=== PATIENT | female | born 1960 | race Caucasian/White ===

== ENCOUNTER 2017-09-26 15:00 | Emergency (ER) | payer MEDICARE, MEDICAID ==
--- NOTE | 2017-09-26 15:56 | UC ---
Throat Pain/Nasal Scotty HPI - HPI Summary HPI Summary: 57 y/o female presents to the urgent care c/o sore throat, fever, chills, B/L ear pain. body aches and HERNADEZ for the past 5 days. Pt states nasal congestion with green nasal discharge. She is also having a green phlegm at times. Pain with swallowing is 7/10. She has taking Exedrin PO to alleviate symptoms. Pt denies SOB, chest pain, abdominal pain, N/V/D. - History of Current Complaint Chief Complaint: UCRespiratory Stated Complaint: ST Time Seen by Provider: 09/26/17 15:54 Hx Obtained From: Patient Hx Last Menstrual Period: menopausal ?: No Onset/Duration: Gradual Onset, Lasting Days - 5 days, Still Present Pain Intensity: 7 Pain Scale Used: 0-10 Numeric Cough: Sputum Appears - green Associated Signs & Symptoms: Positive: Dysphagia, Sinus Discomfort, Nasal Discharge - green. Negative: Wheezing, Fever - Epiglottits Risk Factors Epiglottis Risk Factors: Negative - Allergies/Home Medications Allergies/Adverse Reactions: Allergies Allergy/AdvReac Type Severity Reaction Status Date / Time Codeine Allergy GI Upset Verified 09/26/17 15:56 Leflunomide [From Arava] Allergy Diarrhea Verified 09/26/17 15:56 Methotrexate Allergy Rash Verified 09/26/17 15:56 Penicillins Allergy Hives Verified 09/26/17 15:56 Home Medications: Home Medications Cyclobenzaprine HCl [Flexeril 5 mg (NF)] 0.25 tab BID 09/26/17 [History Confirmed 09/26/17] Gabapentin CAP(*) [Neurontin 100 mg CAP(*)] 100 mg Q8HR PRN 09/26/17 [History Confirmed 09/26/17] PMH/Surg Hx/FS Hx/Imm Hx Previously Healthy: Yes Endocrine History: Hypothyroidism, Dyslipidemia Cardiovascular History: Hypertension - Surgical History Surgical History: Yes Surgery Procedure, Year, and Place: THYROID,TONSILS,TUBAL,SINUS,KNEE SCOPE,GB - Family History Known Family History: Positive: Cardiac Disease, Hypertension, Diabetes - Social History Occupation: Employed Full-time Lives: With Family Alcohol Use: Rare Substance Use Type: None, Prescribed Smoking Status (MU): Never Smoked Tobacco When Did the Patient Quit Smoking/Using Tobacco: quit over 30 years ago - Immunization History Most Recent Influenza Vaccination: Fall 2014 Review of Systems Constitutional: Negative Skin: Negative Eyes: Negative ENT: Sore Throat, Ear Ache - B/L ear pressure, Nasal Discharge - green, Sinus Congestion, Sinus Pain/Tenderness Respiratory: Cough - productive at times with green phlegm Cardiovascular: Negative Gastrointestinal: Negative Genitourinary: Negative Motor: Negative Neurovascular: Negative Musculoskeletal: Negative Neurological: Negative Psychological: Negative Is Patient Immunocompromised?: No All Other Systems Reviewed And Are Negative: Yes Physical Exam Triage Information Reviewed: Yes - Additional Comments Vitals: reviewed General: Well developed, well-nourished female patient with NAD. Head and face: Normocephalic and atraumatic, Positive tenderness over the frontal and maxillary sinuses.. Eyes: PERRLA, EOMI x 2. Normal conjunctiva. No eye discharge. ENT: B/L external ear canal impacted with cerumen unable to visualize TM's. Nose: with yellowish discharge and erythematous mucosa. Pharynx with erythema, no exudate. Neck: Supple, no JVD, no carotid bruits and no lymphadenopathy. Lungs: clear, no rales, no rhonchi, no wheezes. CVS: RRR, S1 and S2 present no murmurs or gallops appreciated. Abdomen: soft nontender with positive bowel sounds. Extremities: no edema noted. Neuro: WNL. Skin: warm and dry Throat Pain/Nasal Course/Dx - Course Course Of Treatment: 57 y/o female presents to the urgent care c/o sore throat, fever, chills, B/L ear pain. body aches and HERNADEZ for the past 5 days. Pt states nasal congestion with green nasal discharge. She is also having a green phlegm at times. Pain with swallowing is 7/10. She has taking Exedrin PO to alleviate symptoms. Pt denies SOB, chest pain, abdominal pain, N/V/D.Hx obtained. Pt with moderate bacterial sinusitis and pharyngitis on examination. Rapid strep ordered , result: negative. Pt PNC allergic . Pt Rx Doxycycline PO and flonase nasal spray. Debrox to clear B/L external ears, Pt declined ear irrigation. Discharge instructions explained to Pt. Advised to Return to the clinic or PCP if symptoms do not improve.Pt understood and agreed with plan of care. - Differential Dx/Diagnosis Differential Diagnosis/HQI/PQRI: Influenza, Laryngitis, Otitis Media, Pharyngitis, Sinusitis, Tonsillitis, URI, Other - cerumen impaction Provider Diagnoses: 1- Acute sinusitis. 2- B/L cerumen impaction. Discharge - Discharge Plan Condition: Stable Disposition: HOME Prescriptions: Carbamide Peroxide 6.5% OTIC* [DEBROX 6.5% Otic*] 5 drop BOTH EARS BID #1 bottle DOXYcycline CAP(*) [DOXYcycline 100MG CAP(*)] 100 mg PO BID #20 cap Fluticasone NASAL SPRAY 50MCG* [Flonase NASAL SPRAY 50MCG*] 2 spray BOTH NARES DAILY #1 btl Patient Education Materials: Sinusitis (ED), Cerumen Impaction (ED) Referrals: Keila Martinez [Primary Care Provider] - 1 Week Additional Instructions: 1- Please increase fluid intake and rest. take full course of antibiotic to avoid resistance 2-Use Flonase as directed to help drain fluid. Also buy saline drops to clear sinuses 3-Continue taking Claritin PO to alleviates sinus congestion 4-Return to the clinic or PCP if symptoms do not improve for further management and treatment
[2017-09-26 16:04] VITALS: BP 121/76
== END 2017-09-26 16:43 | disposition home or self-care (01) ==
LOC: UCCORT 15:00
DX: J01.90 Acute sinusitis, unspecified (principal); H61.23 Impacted cerumen, bilateral; E03.9 Hypothyroidism, unspecified; E78.5 Hyperlipidemia, unspecified; I10 Essential (primary) hypertension; Z88.5 Allergy status to narcotic agent; Z88.0 Allergy status to penicillin; Z88.8 Allergy status to other drugs, medicaments and biological substances; Z87.891 Personal history of nicotine dependence
CPT/HCPCS: 87651; 99212; G0463

== ENCOUNTER 2019-04-21 10:41 | Day surgery (SDC) | payer MEDICARE, MEDICAID ==
[~2019-04-21 10:41] MED LIST: Buffered Lidocaine 1% SYRIN* 1 ML/SYRINGE INTRADERM ONE; Lactated Ringers 1000 ML Bag* 1,000 ML IV SCH
[2019-04-21] MEDS ORDERED: Clindamycin 900 MG IVPREMIX(* 900 MG/50 ML SDV IV ONE (10:50)
[2019-04-21] MEDS ORDERED: Bupivacaine 0.25% SDV PF* 10 ML VIAL INJ ONE (11:14)
[2019-04-21] MEDS ORDERED: Lidocaine 1% MPF* 2 ML VIAL ONE (11:31)
[2019-04-21] MEDS ORDERED: Betamethasone INJ* 6 MG/ML 5 ML VIAL (30 MG) ONE (11:32)
[2019-04-21] MEDS ORDERED: fentaNYL* 50 MCG/ML 2 ML VIAL (100 MCG VIAL) ONE (12:01)
[2019-04-21] MEDS ORDERED: Midazolam* 1 MG/ML 5 ML VIAL (5 MG) ONE (12:01)
[2019-04-21] MEDS ORDERED: Propofol* 10 MG/ML 20 ML BTL ONE ×2 (13:12→13:25)
--- NOTE | 2019-04-21 14:35 | OP ---
DATE OF OPERATION: 04/21/19 - [facility] DATE OF : 56 SURGEON: Titi Mcdonnell MD MOSAIC LAYER: MARY JANE Rabago ANESTHESIOLOGIST: Dr. Romeo. ANESTHESIA: Local MAC. PRE-OP DIAGNOSES: 1. Left middle and ring trigger fingers in a patient with severe rheumatoid arthritis. 2. Left thumb carpometacarpal degenerative joint disease. POST-OP DIAGNOSES: 1. Left middle and ring trigger fingers in a patient with severe rheumatoid arthritis. 2. Left thumb carpometacarpal degenerative joint disease. OPERATIVE PROCEDURE: 1. Left middle finger flexor tenosynovectomy on the finger and palm. 2. Left ring finger flexor tenosynovectomy on the finger and palm. 3. Single slip of the left middle finger FDS tendon excision. 4. Single slip of the left ring finger FDS tendon slip excision. 5. Left thumb carpometacarpal joint steroid injection. INDICATIONS: Nicole has severe rheumatoid arthritis. We talked about our treatment options. She cannot make a fist anymore because her middle and ring fingers are so stiff and are chronic trigger fingers. She wanted to proceed with surgery. I told her we do the surgery a little differently due to her severe rheumatoid arthritis than I would otherwise a typical trigger finger. ESTIMATED BLOOD LOSS: 10 mL. COMPLICATIONS: None. FINDINGS: See above and below. DESCRIPTION OF PROCEDURE: Nicole was seen in the preoperative holding area. The correct site, side, and procedure were identified. We came back to the operating room where the arm was prepped and draped in the usual fashion and a time-out was performed. The arm was exsanguinated with the Esmarch and a forearm base tourniquet was inflated to 200 mmHg. I went ahead and made V-shaped incisions over the PIP joints on both fingers and then over the distal flexion crease proximally over both fingers. Dissections were carried down. Full-thickness flaps were raised off the tendon sheath and all the flaps were sewn back with 4-0 nylon suture. At this point, I had excellent visualization of the A3 and A1 pulleys. I started on the middle finger. I released the A3 bartolo longitudinally on its ulnar aspect. The ulnar slip of the FDS tendon was released with a Hooker blade. Camper's chiasm was released with the tenotomy scissors. In similar fashion, I did the same thing on the ring finger releasing the ulnar slip of the FDS tendon at its insertion. I then came proximally on the ring finger and I delivered the FDS tendon proximal to the A1 bartolo. The tendon split was identified as I just started. I released the remainder of the adhesions between the 2 slips of the FDS tendon and then the ulnar slip was pulled proximally up out of the tendon sheath and beveled off proximally completely excising it. I did the same exact thing to the middle finger excising the ulnar slip of the FDS tendon in the same exact manner. Please note that prior to doing tendon slip excision, I had performed a full flexor tenosynovectomy first of the ring finger and then the middle finger, stripping both the FDS and FDP of all the rheumatoid tenosynovitis. There was a lot of it. All of the tenosynovitis from both fingers was handed off as a single specimen. The tenosynovectomy was taken all the way up into the proximal palm past the origin of the lumbrical muscles. After the tenosynovectomy and the tendon slips were performed and both tendon slips were excised, everything was looking good, at this point we were half an hour on the tourniquet, she was trying to get along comfortable and so we dropped the tourniquet. The skin was closed after the tourniquet was down. There was not that much bleeding. All the wounds were irrigated out prior to closure. Skin closure was done with 4-0 nylon suture. Soft dressings were applied and she was taken to the recovery room in stable condition. [id number]/[facility] #: [id number] THOR
[2019-04-21 15:38] VITALS: BP 141/75
== END 2019-04-21 15:19 | disposition home or self-care (01) ==
LOC: OREAST 10:41
PROVIDERS: ATTEND Orthopaedic Surgery Hand Surgery
DX: M65.342 Trigger finger, left ring finger (principal); M65.332 Trigger finger, left middle finger; M06.832 Other specified rheumatoid arthritis, left wrist; I10 Essential (primary) hypertension; E78.5 Hyperlipidemia, unspecified; J45.909 Unspecified asthma, uncomplicated; K21.9 Gastro-esophageal reflux disease without esophagitis; E03.9 Hypothyroidism, unspecified; D64.9 Anemia, unspecified; F32.9 Major depressive disorder, single episode, unspecified; Z87.891 Personal history of nicotine dependence; Z88.0 Allergy status to penicillin; Z88.2 Allergy status to sulfonamides; Z88.5 Allergy status to narcotic agent; Z88.8 Allergy status to other drugs, medicaments and biological substances
CPT/HCPCS: 88304; J0702; J2250; J2704; J3010; J3490

== ENCOUNTER 2019-07-12 09:19 | Emergency (ER) | payer MEDICARE, MEDICAID ==
--- OUTSIDE RECORDS SUMMARY | 2019-07-12 10:20 | XMS REPORT | Continuity of Care Document ---
:1960 External Reference #:[id number] Author Name Masood Russ DO, MPH Address [address] [place] [address], [address] [place] [address] Care Team Providers Name Role Phone Martín Fox N.P. - Internal Care Team Information Emergency Service Restorer [phone] Medicine Problems Active Problems Provider Date Musculoskeletal disorder of the neck Masood Russ DO, MPH Onset: 02/25/2011 Social History Type Date Description Comments Sex Unknown Tobacco Use Start: Unknown Never Smoked Cigarettes ETOH Use Occasionally consumes alcohol Tobacco Use Start: Unknown End: Unknown Patient is a former smoker Smoking Status Reviewed: 06/28/19 Patient is a former smoker Allergies, Adverse Reactions, Alerts Active Allergies Reaction Severity Comments Date PCN 01/27/2008 Codeine 01/27/2008 Arava 01/27/2008 Methotrexate 01/27/2008 Medications Active Medications SIG Qnty Indications Ordering Date Provider Gabapentin take 1 capsules 120caps Masood Russ, 07/01/2017 100mg Capsules by mouth every 6 DO, MPH hours ud. chronic pain Cyclobenzaprine HCL si by mouth 60tabs Masood Russ, 09/01/2016 10mg every 8 to 12 DO, MPH Tablets hours as directed chronic pain patient. Oxycodone HCL sipo every 12 60tabs Masood Russ, 08/07/2014 5mg Tablets hours as DO, MPH directed chronic pain patient Cymbalta si by mouth 30caps Masood Russ, 09/26/[address] Part every day as DO, MPH directed chronic pain patient Synthroid 1 po qd ud Unknown 88mcg Tablets Fluticasone Propionate prn Unknown 50mcg/Act Suspension Metoprolol Tartrate Unknown 75mg Tablets Verapamil HCL Unknown 40mg Tablets Losartan Unknown Potassium/Hydrochloroth iazide 100-25mg Tablets Calcium 600+D 1 by mouth three Unknown Tablets times a day Loratadine si by mouth Unknown 10mg Tablets every morning Leflunomide 1 by mouth daily Unknown 20mg Tablets Immunizations Description No Information Available Vital Signs Date Vital Result Comment 06/28/2019 9:13am BP Systolic 122 mmHg BP Diastolic 74 mmHg Heart Rate 76 /min Respiratory Rate 20 /min Height 64 inches 5'4" Weight 182.00 lb Pain Level 3 Pain at this time. Pain Level With Medicine 3 on average with meds Pain Level Without Medicine 9 without meds BMI (Body Mass Index) 31.2 kg/m2 05/26/2019 9:53am BP Systolic 128 mmHg BP Diastolic 78 mmHg Heart Rate 74 /min Respiratory Rate 20 /min Height 64 inches 5'4" Weight 183.00 lb Pain Level 4 Pain at this time. Pain Level With Medicine 3 on average with meds Pain Level Without Medicine 8 without meds BMI (Body Mass Index) 31.4 kg/m2 Results Description No Information Available Procedures Description No Information Available Medical Devices Description No Information Available Encounters Type Date Location Provider Dx Diagnosis Office Visit 05/26/2019 Main Office as Of Masood Russ DO G89.21 Chronic pain due 10:00a 12/03/13 MPH to trauma M54.2 Cervicalgia Z79.891 senior living (current) use of opiate analgesic Z79.891 senior living (current) use of opiate analgesic Office Visit 04/27/2019 9:30a Main Office as Masood Russ G89.21 Chronic pain due Of 12/03/13 DO, MPH to trauma M54.2 Cervicalgia Z79.891 web specialist (current) use of opiate analgesic Z79.891 senior living (current) use of opiate analgesic Office Visit 03/30/2019 9:30a Main Office as Masood Russ G89.21 Chronic pain due Of 12/03/13 DO, MPH to trauma M54.2 Cervicalgia Z79.891 senior living (current) use of opiate analgesic Z79.891 web specialist (current) use of opiate analgesic Office Visit 03/01/2019 9:15a Main Office as RussLin goph, G89.21 Chronic pain due Of 12/03/13 DO, MPH to trauma M54.2 Cervicalgia Z79.891 senior living (current) use of opiate analgesic Z79.891 web specialist (current) use of opiate analgesic Office Visit 01/31/2019 9:15a Main Office as RussLin goph, G89.21 Chronic pain due Of 12/03/13 DO MPH to trauma M54.2 Cervicalgia Z79.891 senior living (current) use of opiate analgesic Z79.891 senior living (current) use of opiate analgesic Assessments Date Code Description Provider 06/28/2019 G89.21 Chronic pain due to trauma Russ, Masood, DO, MPH 06/28/2019 M54.2 Cervicalgia Russ, Masood, DO, MPH 06/28/2019 Z79.891 web specialist (current) use of opiate analgesic Russ, Masood , DO, MPH 06/28/2019 Z79.891 web specialist (current) use of opiate analgesic Russ, Masood , DO, MPH 05/26/2019 G89.21 Chronic pain due to trauma Russ, Masood, DO, MPH 05/26/2019 M54.2 Cervicalgia Russ, Masood, DO, MPH 05/26/2019 Z79.891 senior living (current) use of opiate analgesic Russ, Masood , DO, MPH 05/26/2019 Z79.891 senior living (current) use of opiate analgesic Russ, Masood , DO, MPH 04/27/2019 G89.21 Chronic pain due to trauma Russ, Masood, DO, MPH 04/27/2019 M54.2 Cervicalgia Russ, Masood, DO, MPH 04/27/2019 Z79.891 web specialist (current) use of opiate analgesic Russ, Masood , DO, MPH 04/27/2019 Z79.891 senior living (current) use of opiate analgesic Russ, Masood , DO, MPH 04/20/2019 G89.21 Chronic pain due to trauma Russ, Masood, DO, MPH 04/20/2019 M54.2 Cervicalgia Russ, Masood, DO, MPH 03/30/2019 G89.21 Chronic pain due to trauma Masood Russ DO, MPH 03/30/2019 M54.2 Cervicalgia Masood Russ DO, MPH 03/30/2019 Z79.891 senior living (current) use of opiate analgesic Masood Russ DO, MPH 03/30/2019 Z79.891 senior living (current) use of opiate analgesic Masood Russ DO, MPH 03/01/2019 G89.21 Chronic pain due to trauma Masood Russ DO, MPH 03/01/2019 M54.2 Cervicalgia Masood Russ DO, MPH 03/01/2019 Z79.891 senior living (current) use of opiate analgesic Masood Russ DO MPH 03/01/2019 Z79.891 web specialist (current) use of opiate analgesic Masood Russ DO, MPH 01/31/2019 G89.21 Chronic pain due to trauma Masood Russ DO MPH 01/31/2019 M54.2 Cervicalgia Masood Russ DO, MPH 01/31/2019 Z79.891 web specialist (current) use of opiate analgesic Masood Russ DO, MPH 01/31/2019 Z79.891 web specialist (current) use of opiate analgesic Masood Russ DO, MPH Plan of Treatment Future Appointment(s):08/02/2019 9:15 am - Masood Russ DO MPH at Main Office as Of 12/03/1407 - Masood Russ DO, MPHG89.21 Chronic pain due to traumaComments:Chronic. Symptoms and complaints discussed and reviewed today. No significant changes in physical findings. Continue current medical pain management.M54.2 CervicalgiaComments:Chronic. Symptoms and complaints discussed and reviewed today. No significant changes in physical findings. Continue current medical pain management.Z79.891 senior living (current) use of opiate analgesicNew Labs:Urine Drug Screen, Ordered: 06/28/19Comments:Urine drug screen sample taken. Rapid Point of Care Cup was reviewed in office with patient. Will send out UDT Rapid to [facility] lab for confirmation testing. Urine Drug Testing (UDT) was done today to monitor opiate use and to monitor possible use of illicit substances. I will discuss the results at the next appointment from the Quantitative lab.The following tests were ordered:6 AM, AMPH, TERRENCE, SARAH, BUP, CARIS, COCM, COT, ETG, FENT, MCSHSG, OPI, OXY, PCP, TAPEN, XTSY, ZOLP. A urine drug test (UDT) using a rapid screen cup was ordered for this patient and collected on site today. Creatinine has been ordered as well for specimen validity, not for kidney function. Urine Drug Testing is a mandatory component of chronic opioid management, as part of the baseline assessment and ongoing re-assessment of opioid therapy. Per [place] [employer], [place] Non-Acute Pain Medical Treatment Guidelines, section F.3.d.i. This test is to be used in conjunction with other clinical information when decisions are to be made to continue, adjust or discontinue treatment. This information includes clinical observation, results of addiction screening, pill counts, and prescription drug monitoring reports. Preliminary UDT screen results are not final and should not be usedto determine patient care or plan of treatment. This sample will be sent out for a more comprehensive quantitative confirmation LCMS study. It is part of the treatment process of prescribing controlled substances and is considered standard of care at this clinic.AllComments:Continue current medical pain management; injection therapy, osteopathic manipulation, PT / modalities, and consults as needed to manage chronic pain.Non - opioid pain management discussed and optionsdiscussed.Side effects discussed; anticipatory guidance given. Patient clearly understand and agree with all medical treatments and suggestions. All medicines prescribed are adequate and appropriate for this patient's complaint of pain, medical history, physical, and personal goals.Goals of Treatment are to provide adequate and appropriate multidisciplinary medical pain management to increase/ maintain patient's quality of life and functionality while maintaining satisfactory side effect profile andminimizing mcfp end-organ damage. Importance of regular nutrition throughout the day discussed.Activity as toleratedContinue with PCP Functional Status Description No Information Available Mental Status Description No Information Available Referrals Description No Information Available
--- OUTSIDE RECORDS SUMMARY | 2019-07-12 10:20 | XMS REPORT | Continuity of Care Document ---
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 Problems Provider Date Tenosynovitis of hand Titi Mcdonnell MD Onset: 06/11/2018 Acquired trigger finger Titi Mcdonnell MD Onset: 10/08/2018 Rheumatoid arthritis Titi Mcdonnell MD Onset: 10/08/2018 Social History Type Date Description Comments Sex Unknown ETOH Use Rarely consumes alcohol Tobacco Use Start: Unknown End: Patient is a former smoker Unknown Smoking Status Reviewed: 06/17/19 Patient is a former smoker Exercise Type/Frequency Exercises sporadically Allergies, Adverse Reactions, Alerts Active Allergies Reaction Severity Comments Date Penicillin 02/18/2011 Methotrexate 02/18/2011 Azathioprine rash 11/25/2011 Sulfa Antibiotics 06/11/2018 Codeine 06/11/2018 Hydroxychloroquine 06/11/2018 Keflex 06/11/2018 Inactive Allergies Arava 02/18/2011 Medications Active Medications SIG Qnty Indications Ordering Date Provider Nexium 1 po qd 90caps Thompson U[place], 02/18/[address] Hunter Synthroid 1 po qd 90tabs Unknown 88mcg Tablets Cymbalta 1 po qd 30caps Unknown 60mg Caps DR Cheema Metoprolol Succinate ER 3 by mouth every Unknown day 25mg Tablets ER 24HR Docqlace 1 cap daily as Unknown 100mg Capsules needed Oxycodone-Acetaminophen 1/4 tablet by 20tabs Unknown mouth every 4-6 5-325mg Tablets hours as needed for pain Hyzaar take 1 tablet by Unknown 100-25mg Tablets mouth in the morning Atorvastatin Calcium 1 by mouth every Unknown 40mg day Tablets Proair HFA 2 puffs by mouth Unknown 108(90Base) every 4 hours as mcg/Act Aerosol needed Nystatin-Triamcinolone apply to Unknown affected area(s) 515271-4.1Unit/GM-% two times a day Cream Gabapentin 3 cap by mouth Unknown 100mg Capsules daily Cyclobenzaprine HCL take one tablet Unknown 5mg by mouth every 8 Tablets hours prn Verapamil HCL ER 1 by mouth at Unknown 120mg Caps bedtime ER 24HR Leflunomide 2 tabs by mouth Unknown 10mg Tablets once daily Eql Fluticasone bid Unknown Propionate 50mcg/Act Suspension History Medications Tramadol HCL 1 tab by mouth 15tabs Titi Mcdonnell MD 04/21/2019 - 50mg every 4-6 hours 05/12/2019 Tablets as needed pain Medications Administered in Office Medication SIG Qnty Indications Ordering Provider Date Celestone 3 mg and 3mg Ermias Dumont MD 10/21/2018 Injection Celestone 3 mg and 3mg Titi Mcdonnell MD 10/08/2018 Injection Celestone 3 mg and 3mg Titi Mcdonnell MD 10/08/2018 Injection Celestone 3 mg and 3mg Titi Mcdonnell MD 06/11/2018 Injection Celestone 3 mg and 3mg Titi Mcdonnell MD 06/11/2018 Injection Immunizations Description No Information Available Vital Signs Date Vital Result Comment 06/17/2019 9:06am Height 62 inches 5'2" Weight 180.00 lb Heart Rate 71 /min BP Systolic Sitting 114 mmHg BP Diastolic Sitting 66 mmHg Respiratory Rate 18 /min Pain Level 1 O2 % BldC Oximetry 93 % BMI (Body Mass Index) 32.9 kg/m2 05/13/2019 10:00am Height 62 inches 5'2" Weight 180.00 lb Heart Rate 67 /min BP Systolic Sitting 106 mmHg BP Diastolic Sitting 74 mmHg Respiratory Rate 16 /min Pain Level 2 O2 % BldC Oximetry 96 % BMI (Body Mass Index) 32.9 kg/m2 Results Test Date Facility Test Result H/L Range Note Laboratory test 04/21/2019 [facility] Surgical SEE RESULT 1 , [address] Pathology BELOW [place], [place] [id number] [phone] 1 [id number] 2 SEE RESULT BELOW Name: NICOLE MCCARTY Carmencita : [address]: Titi Mcdonnell MD Acct: [id number] Unit: [id number] AGE: 58 Location: [facility] Re04/21/19 SEX: F [place] [facility] [place]: [id number] JASMIN: 04/21/19-1309 [facility] DR: Titi Mcdonnell MD REQ: [id number] RECD: 04/21/19 STATUS: SOUT _ ORDERED: LEVEL 3/2 COMMENTS: [id number] FINAL DIAGNOSIS 1. 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 -- No significant active acute or chronic inflammatory process identified. 2. Tendon slips of left middle and ring finger -- Degenerated tendon tissue with myxoid degeneration and skeletal muscle. CLINICAL HISTORY History of rheumatoid arthritis PRE-OPERATIVE DIAGNOSIS Left middle and ring trigger fingers, rheumatoid arthritis left wrist GROSS DESCRIPTION 1. The specimen is received in formalin labeled, Tenosynovitis Left Ring and Middle Fingers, and consists of a 1.9 x 1.8 by up to 0.2 cm aggregate of rowley-white irregular fibrous tissue fragments which is submitted entirely in one cassette. 2. The specimen is received in formalin labeled, Tendons Slips of Left Middle and Ring Fingers, and consists of three rowley-white irregular to elongated focally shaggy rubbery tendinous soft tissue fragments ranging from 2.3 by up to 1.1 x 0.5 cm and 5.7 by up to 0.4 x 0.3 cm. Licensed Sales Producer sections, one cassette. CONTINUED ON NEXT PAGE DEPARTMENT OF PATHOLOGY, [address] [place] [address] Ignacio Alexis M.D. Director [facility] # [id number] RUN DATE: 04/26/19 [facility] LAB LIVE PAGE 2 Patient: NICOLE MCCARTY [id number] (Continued) GROSS DESCRIPTION (Continued) Signed by and Reported on: Ignacio Alexis MD 1459 END OF REPORT DEPARTMENT OF PATHOLOGY, [address] [place] [address] Ignacio Alexis M.D. Director [facility] # [id number] Procedures Date Code Description Status 04/21/2019 52217 Excision Tendon Finger Flexor Completed 04/21/2019 57798 Excision Tendon Finger Flexor Completed 04/21/2019 82795 Excision Tendon Finger Flexor Completed 04/21/2019 45593 Excision Tendon Finger Flexor Completed 04/21/2019 17750 Synovectomy Tendon Sheath Radical Flexor Palm/Finger Completed 04/21/2019 44924 Synovectomy Tendon Sheath Radical Flexor Palm/Finger Completed 04/21/2019 72017 Synovectomy Tendon Sheath Radical Flexor Palm/Finger Completed 04/21/2019 95195 Synovectomy Tendon Sheath Radical Flexor Palm/Finger Completed 04/21/2019 33829 Inject/Drain Joint/Bursa Small W/O US Completed Medical Devices Description No Information Available Encounters Type Date Location Provider Dx Diagnosis Office Visit 03/11/2019 Orthopedic Titi Mcdonnell M65.342 Trigger finger, 1:[facility] AT left ring finger Deport M65.332 Trigger finger, left middle finger M06.832 Other specified rheumatoid arthritis, left wrist Assessments Date Code Description Provider 06/17/2019 Jnes.342 Trigger finger, left ring finger Titi Mcdonnell MD 06/17/2019 M65.332 Trigger finger, left middle finger Titi Mcdonnell MD 05/13/2019 M65.342 Trigger finger, left ring finger Titi Mcdonnell MD 05/13/2019 M05.842 Other rheumatoid arthritis with rheumatoid Titi Mcdonnell MD factor of left mayers 05/13/2019 Z47.89 Encounter for other orthopedic aftercare Titi Mcdonnell MD 04/29/2019 M6Percy.342 Trigger finger, left ring finger Titi Mcdonnell MD 04/29/2019 M05.842 Other rheumatoid arthritis with rheumatoid Titi Mcdonnell MD factor of left mayers 04/29/2019 Z47.89 Encounter for other orthopedic aftercare Titi Mcdonnell MD 04/21/2019 M65.342 Trigger finger, left ring finger Abi Wiley, RPA-C 04/21/2019 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 , RPA-C carpometacarpal j 04/21/2019 M65.342 Trigger finger, left ring finger Titi Mcdonnell MD 04/21/2019 M65.332 Trigger finger, left middle finger Abi Bitting, RPA-C 04/21/2019 M65.332 Trigger finger, left middle finger Titi Mcdonnell MD 04/21/2019 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 j 04/21/2019 M05.842 Ot rheumatoid arthritis with rheumatoid Abi Wiley, RPA-C factor of left hand 04/21/2019 M05.842 Oth rheumatoid arthritis with rheumatoid Titi Mcdonnell MD factor of left hand 04/13/2019 M65.342 Trigger finger, left ring finger Titi Mcdonnell MD 04/13/2019 M65.332 Trigger finger, left middle finger Titi Mcdonnell MD 04/13/2019 M06.832 Other specified rheumatoid arthritis, left Titi Mcdonnell MD wrist 03/11/2019 M65.342 Trigger finger, left ring finger Titi Mcdonnell MD 03/11/2019 M65.332 Trigger finger, left middle finger Titi Mcdonnell MD 03/11/2019 M06.832 Other specified rheumatoid arthritis, left Titi Mcdonnell MD wrist 03/11/2019 M65.342 Trigger finger, left ring finger Titi Mcdonnell MD 03/11/2019 M65.332 Trigger finger, left middle finger Titi Mcdonnell MD 03/11/2019 M06.832 Other specified rheumatoid arthritis, left Titi Mcdonnell MD wrist Plan of Treatment Future Appointment(s):09/23/2019 8:00 am - Titi Mcdonnell MD at [facility] AT Nngvgjnc28/16/2019 - Titi Mcdonnell MDM65.342 Trigger finger , left ring fingerFollow up:Follow up: 2-3 [id number] Trigger finger, left middle finger Functional Status Description No Information Available Mental Status Description No Information Available Referrals Description No Information Available
[2019-07-12 10:24] VITALS: BP 125/67
--- NOTE | 2019-07-12 10:49 | UC ---
Ear Complaint HPI - HPI Summary HPI Summary: left ear fullness x 3 days no ear pain , tried baby oil without any help + dizziness, nausea , worse with head movement and changing direction no cold sx, no sinus pain , no fever, no chills - History of Current Complaint Chief Complaint: UCEar Stated Complaint: LEFT EAR DIZZY Time Seen by Provider: 07/12/19 10:17 Hx Obtained From: Patient Hx Last Menstrual Period: menopausal Onset/Duration: Gradual Onset, Lasting Days - 3, Still Present Severity Initially: Moderate Severity Currently: Moderate Pain Intensity: 4 Aggravating Factors: Nothing - movement Associated Signs/Symptoms: Positive: Hearing Loss. Negative: Discharge, Foreign Body Sensation, Trauma to Ear, Swelling @, URI Symptoms - Allergies/Home Medications Allergies/Adverse Reactions: Allergies Allergy/AdvReac Type Severity Reaction Status Date / Time codeine Allergy Severe GI Upset Verified 07/12/19 10:18 methotrexate Allergy Severe Rash And Verified 07/12/19 10:18 Itching Penicillins Allergy Severe Hives Verified 07/12/19 10:18 PMH/Surg Hx/FS Hx/Imm Hx Endocrine History: Hypothyroidism Cardiovascular History: Hypertension Respiratory History: Asthma - Surgical History Surgical History: Yes Surgery Procedure, Year, and Place: THYROIDECTOMY,TONSILLECTOMY,TUBAL LIGATION, SINUS,KNEE SCOPE,. GALLBLADDER REMOVED, LOWER BACK FUSION. BILAT CATARACTS WITH IOL. LEFT HAND, 04/2019 - Family History Known Family History: Positive: None, Cardiac Disease, Hypertension, Diabetes, Respiratory Disease - Social History Alcohol Use: None Substance Use Type: None Smoking Status (MU): Former Smoker When Did the Patient Quit Smoking/Using Tobacco: quit over 33 years ago - Immunization History Most Recent Influenza Vaccination: Fall 2014 Most Recent Tetanus Shot: UTD Review of Systems All Other Systems Reviewed And Are Negative: Yes Constitutional: Positive: Negative Skin: Positive: Negative Eyes: Positive: Negative ENT: Negative: Sore Throat, Ear Ache, Nasal Discharge, Sinus Congestion, Sinus Pain/Tenderness Respiratory: Positive: Negative Is Patient Immunocompromised?: No Physical Exam Triage Information Reviewed: Yes Appearance: Well-Appearing, No Pain Distress, Well-Nourished Vital Signs: Initial Vital Signs Temp 97.2 F 07/12/19 10:19 Pulse 72 07/12/19 10:19 Resp 16 07/12/19 10:19 BP 125/67 07/12/19 10:19 Pulse Ox 98 07/12/19 10:19 Vital Signs Reviewed: Yes Eye Exam: Normal Eyes: Positive: Conjunctiva Clear ENT: Positive: Normal ENT inspection, Hearing grossly normal, Pharynx normal, TMs normal, Other - cerumen impaction left ear cerumen was removed using irrigation with warm water. Negative: TM bulging, TM dull, TM red Neck: Positive: Supple, Nontender, No Lymphadenopathy Respiratory: Positive: Chest non-tender, Lungs clear, Normal breath sounds Cardiovascular: Positive: RRR, No Murmur, Pulses Normal Neurological: Positive: Alert UC Physical Exam Vital Signs On Initial Exam: Initial Vitals Temp Pulse Resp BP Pulse Ox 97.2 F 72 16 125/67 98 07/12/19 10:19 07/12/19 10:19 07/12/19 10:19 07/12/19 10:19 07/12/19 10:19 - Neurological Exam Neurological: Normal, Sensory/Motor Intact, Alert, Oriented to Person Place, Time, CN Intact II-III, Reflexes Intact, Speech Normal Ear Complaint Course/Dx - Differential Dx/Diagnosis Provider Diagnosis: Impacted cerumen, left ear, Vertigo Discharge ED - Sign-Out/Discharge Documenting (check all that apply): Patient Departure All imaging exams completed and their final reports reviewed: No Studies - Discharge Plan Condition: Stable Disposition: HOME Prescriptions: Meclizine HCl [Motion Sickness Relief] 25 mg PO Q8H PRN #15 tablet PRN Reason: Dizziness Patient Education Materials: Cerumen Impaction (ED), Vertigo (ED) Referrals: Keila Martinez [Primary Care Provider] - 7 Days - Billing Disposition and Condition Condition: STABLE Disposition: Home
== END 2019-07-12 10:45 | disposition home or self-care (01) ==
LOC: UCCORT 09:19
DX: J98.01 Acute bronchospasm (principal); Z76.0 Encounter for issue of repeat prescription
CPT/HCPCS: 99212; G0463